=== PATIENT | female | born 1940 | race Caucasian/White ===

== ENCOUNTER 2024-11-14 08:08 | Emergency (ER) | payer OTHER ==
[~2024-11-14] VITALS: Ht 165.1 cm; Wt 48.1 kg
[2024-11-14 08:30] VITALS: TEMP 97.8
[2024-11-14 13:40] LABS: BASOPHILS % (AUTO) 0.4 % (0.0-2.0); EOSINOPHILS # (AUTO) 0.1 K/uL (0.0-0.7); EOSINOPHILS % (AUTO) 0.8 % (0.0-6.0); HEMATOCRIT 30 % (33-45); HEMOGLOBIN 10.7 g/dL (11.5-14.8); LYMPHOCYTES # (AUTO) 1.5 K/uL (0.8-4.8); LYMPHOCYTES % (AUTO) 19.6 % (20.0-44.0); MEAN CORPUSCULAR HEMOGLOBIN 34 PG (26.0-33.0); MEAN CORPUSCULAR HGB CONC 35 g/dl (31.0-36.0); MEAN CORPUSCULAR VOLUME 96 fL (82-100); MONOCYTES # (AUTO) 0.5 K/uL (0.1-1.30); NEUTROPHILS # (AUTO) 5.5 K/uL (1.8-8.9); NEUTROPHILS % (AUTO) 72.2 % (43.0-81.0); PLATELET COUNT (AUTO) 257 K/uL (150-450); RED BLOOD CELL COUNT(AUTO) 3.16 MIL/uL (4.0-5.2); RED CELL DISTRIBUTION WIDTH 14.4 % (11.5-15.0); WHITE BLOOD COUNT (AUTO) 7.6 K/uL (4.3-11.0)
[2024-11-14 13:53] LABS: CALCIUM, SERUM 9.1 mg/dL (8.5-10.1); CREATININE 0.7 mg/dL (0.6-1.3)
[2024-11-14 14:00] LABS: INR 1.03 (0.91-1.10); PARTIAL THROMBOPLASTIN TIME 30.2 SEC (24.3-34.3); PROTHROMBIN TIME 10.9 SECS (9.2-11.1)
[2024-11-14] MEDS ORDERED: OLAN5TAB3 PO (14:02)
[2024-11-14] MEDS ORDERED: CYAN500T64 PO (14:02)
[2024-11-14] MEDS ORDERED: ATOR10TA PO (14:02)
[2024-11-14] MEDS ORDERED: SERT100T PO (14:02)
[2024-11-14] MEDS ORDERED: hydrALAZINE HCL IV 20 MG VIAL ONE (18:21)
[2024-11-14 18:30] VITALS: O2SAT 97
[2024-11-14 18:33] VITALS: BP 194/92
[2024-11-14] MEDS: hydrALAZINE HCL IV 20 MG VIAL IV ONE (18:33)
== END 2024-11-14 18:48 ==
LOC: ER 08:17
DX: S32.592A Other specified fracture of left pubis, initial encounter for closed fracture (principal); M54.50 Low back pain, unspecified; E78.5 Hyperlipidemia, unspecified; R51.9 Headache, unspecified; F03.90 Unspecified dementia, unspecified severity, without behavioral disturbance, psychotic disturbance, mood disturbance, and anxiety; Z79.899 Other long term (current) drug therapy; W01.0XXA Fall on same level from slipping, tripping and stumbling without subsequent striking against object, initial encounter; Y93.89 Activity, other specified; Y92.89 Other specified places as the place of occurrence of the external cause; Y99.8 Other external cause status
CPT/HCPCS: 99285; 70450; 96374; 71045; 93005; 72110; 72170; 72192; 85025; 80048; 36415; 85730; J0360